=== PATIENT | female | born 1975 | race Caucasian/White ===

== ENCOUNTER → 2019-12-26 13:08 | Outpatient (BNVA) | payer MEDICAID, SELFPAY | PROVIDERS: Family Provider Nurse Practitioner Family; PCP Nurse Practitioner Family; Referring Provider Nurse Practitioner Family; Visit Provider Podiatrist Foot & Ankle Surgery | DX: M25.571 Pain in right ankle and joints of right foot (principal) | CPT/HCPCS: 73610 ==

== ENCOUNTER 2019-12-26 14:19 | Outpatient (CLI) | payer MEDICAID, SELFPAY | END 2019-12-26 14:20 | disposition home or self-care (01) | LOC: SPT 14:20 | PROVIDERS: Family Provider Nurse Practitioner Family; PCP Nurse Practitioner Family; Visit Provider Podiatrist Foot & Ankle Surgery | DX: M76.62 Achilles tendinitis, left leg (principal); M76.61 Achilles tendinitis, right leg | CPT/HCPCS: L4397 ==

== ENCOUNTER → 2020-01-19 09:50 | Outpatient (BNVA) | payer MEDICAID, SELFPAY | PROVIDERS: Family Provider Nurse Practitioner Family; PCP Family Medicine; Visit Provider Nurse Practitioner | DX: M54.9 Dorsalgia, unspecified (principal); M54.2 Cervicalgia; F17.210 Nicotine dependence, cigarettes, uncomplicated; Z79.891 Long term (current) use of opiate analgesic | CPT/HCPCS: 99213; 99214 ==

== ENCOUNTER → 2020-04-20 14:38 | Outpatient (BNVA) | payer MEDICAID, SELFPAY | PROVIDERS: Family Provider Nurse Practitioner Family; PCP Family Medicine; Visit Provider Family Medicine | DX: R30.0 Dysuria (principal); R35.0 Frequency of micturition | CPT/HCPCS: 81000 ==

== ENCOUNTER → 2020-06-04 09:15 | Outpatient (BNVA) | payer MEDICAID, SELFPAY | PROVIDERS: Family Provider Nurse Practitioner Family; PCP Family Medicine; Visit Provider Family Medicine | DX: N39.0 Urinary tract infection, site not specified (principal); K46.9 Unspecified abdominal hernia without obstruction or gangrene; R35.0 Frequency of micturition; R76.0 Raised antibody titer; Z79.899 Other long term (current) drug therapy | CPT/HCPCS: 80076; 81003; 82565; 85025; 85613; 85651; 85730; 86140 ==

== ENCOUNTER → 2020-06-12 14:10 | Outpatient (BNVA) | payer MEDICAID, SELFPAY | PROVIDERS: Family Provider Nurse Practitioner Family; PCP Family Medicine; Visit Provider Anesthesiology | DX: G89.29 Other chronic pain (principal); M54.5 Low back pain; M54.2 Cervicalgia; F17.210 Nicotine dependence, cigarettes, uncomplicated; Z79.891 Long term (current) use of opiate analgesic | CPT/HCPCS: 99213; 99214 ==

== ENCOUNTER → 2020-08-22 10:11 | Outpatient (BNVA) | payer MEDICAID, SELFPAY | PROVIDERS: Family Provider Nurse Practitioner Family; PCP Family Medicine; Visit Provider Anesthesiology | DX: G89.29 Other chronic pain (principal); M54.42 Lumbago with sciatica, left side; M54.41 Lumbago with sciatica, right side; M54.2 Cervicalgia; F17.210 Nicotine dependence, cigarettes, uncomplicated; Z79.891 Long term (current) use of opiate analgesic | CPT/HCPCS: 99213; 99214 ==

== ENCOUNTER → 2020-09-24 17:05 | Outpatient (BNVA) | payer MEDICAID, SELFPAY | PROVIDERS: Family Provider Nurse Practitioner Family; PCP Family Medicine; Visit Provider Nurse Practitioner Family | DX: E03.9 Hypothyroidism, unspecified (principal); Z23 Encounter for immunization; Z79.899 Other long term (current) drug therapy | CPT/HCPCS: 80076; 82565; 84439; 84443; 85025; 85651; 86140; 86376 ==

== ENCOUNTER → 2020-10-10 11:38 | Outpatient (BNVA) | payer MEDICAID, SELFPAY | PROVIDERS: Family Provider Nurse Practitioner Family; PCP Family Medicine; Visit Provider Internal Medicine Rheumatology | DX: M25.50 Pain in unspecified joint (principal); Z79.899 Other long term (current) drug therapy; R76.0 Raised antibody titer; E28.2 Polycystic ovarian syndrome; M79.7 Fibromyalgia; F17.210 Nicotine dependence, cigarettes, uncomplicated; R74.01 Elevation of levels of liver transaminase levels | CPT/HCPCS: 99214 ==

== ENCOUNTER 2020-10-17 09:33 | Outpatient (CLI) | payer MEDICAID, SELFPAY ==
[2020-10-17] MEDS: iohexol 300 mg/mL 50 mL Btl PO (10:29)
--- NOTE | 2020-10-17 11:00 | CT_ITS ---
WS: [id number] CT CHEST, ABDOMEN, AND PELVIS TECHNIQUE: Contrast-enhanced CT of the chest, abdomen, and pelvis with coronal and sagittal reformatt ed images. CLINICAL INFORMATION: Z95.828 - Presence of other vascular implants and grafts COMPARISON: CTA and CT abdomen pelvis DLP: All CT scans at [facility] use at least one of these dose optimization techniques: automat ed exposure control; mA and/or kV adjustment per patient size (includes targeted exams where dose is matched to clinical indication); or iterative reconstruction. CT CHEST: Normal caliber thoracic aorta. Normal caliber proximal main pulmonary arteries. No mediastinal or hil ar lymphadenopathy. No axillary lymphadenopathy. Aortic calcification. Both lungs are well aerated. N o acute pulmonary infiltrates. No mediastinal or hilar lymphadenopathy. No axillary lymphadenopathy. CT ABDOMEN AND PELVIS: Prior postoperative cholecystectomy. Diffuse fatty infiltration the liver. Hepatomegaly. Normal splee n. Fatty atrophy of the pancreas. Prior gastric sleeve procedure. No evidence of small or large bowel obstruction. Adrenal glands are normal. Normal renal parenchymal enhancement. Left renal cyst measur ing 1.5 cm. IVC filter. Aortic calcification. No abdominal or pelvic lymphadenopathy. No inguinal lymphadenopathy. Normal sigmoid colon. Prior ventral abdominal wall hernia repair with mesh. Additional upper abdomina l and lower abdominal ventral hernia repairs. Incidental tiny fat-containing umbilical hernia. Stable small fat-containing periumbilical hernia. Stable low-attenuation right ovarian lesion measuring 5.3 x 4.7 CM. Left ovarian cystic lesion measur ing 3.[address]/CT chest abd pel w con* IMPRESSION: 1. Lungs are well aerated. No acute pulmonary infiltrates. 2. No mediastinal or hilar lymphadenopathy. 3. Hepatomegaly with diffuse fatty infiltration. 4. Multiple prior ventral abdominal wall hernia repairs. 5. Fat-containing right periumbilical hernia measuring 2.5 cm is unchanged. No herniated bowel. 6. Incidental tiny fat-containing umbilical hernia. 7. Unchanged low-attenuation cystic-appearing lesion in the right lower quadra nt measuring 4.7 x 5.3 cm appears unchanged.. 8. Prior gastric sleeve procedure. 9. No inguinal hernia or lymphadenopathy.
[2020-10-17] MEDS: iohexol 300 mg/mL 100 mL Btl IV (11:57)
== END 2020-10-17 09:34 | disposition home or self-care (01) ==
LOC: RADWPI 09:39
PROVIDERS: PCP Family Medicine; Visit Provider Nurse Practitioner Family
DX: R10.31 Right lower quadrant pain (principal); Z95.828 Presence of other vascular implants and grafts; R16.0 Hepatomegaly, not elsewhere classified; K76.0 Fatty (change of) liver, not elsewhere classified; K42.9 Umbilical hernia without obstruction or gangrene
CPT/HCPCS: 71260; 74177; Q9967

== ENCOUNTER 2020-10-31 14:36 | Outpatient (CLI) | payer MEDICAID, SELFPAY ==
--- NOTE | 2020-10-31 10:15 | USCV_ITS ---
Prashanth Diamondher Age: 44 Gender: F : 1975 Exam Date: 10/31/2020 14:59 Ordering Phys: Gaby Asher MD Technologist: Fara Boyce Exam Location: [facility] – [place] Indication: PAIN IN RIGHT LEG HISTORY: Lower extremity pain. PROCEDURES: Venous duplex imaging was performed in only the right lower extremity. The following venous structures were evaluated: common femoral vein, profunda vein, proximal portion of the greater saphenous vein, superficial femoral vein, and the popliteal vein. In addition, the posterior tibial and peroneal trunk were evaluated. Serial compression, augmentation maneuvers, and spectral Doppler flow evaluation were performed. FINDINGS: Normal 2-D Doppler and augmentation and compressibility throughout the lower extremity venous structures. Additional imaging through the proximal calf veins also reveals no thrombus. Limited evaluation of the greater saphenous vein is patent with no thrombus.. CONCLUSIONS No evidence of right lower extremity DVT. Javier Thompson MD (Electronically Signed) Final Date: 01 November 2020 12:37 S
== END 2020-10-31 14:37 | disposition home or self-care (01) ==
LOC: RAD 14:40
PROVIDERS: PCP Family Medicine; Visit Provider Family Medicine
DX: M79.604 Pain in right leg (principal)
CPT/HCPCS: 93971

== ENCOUNTER → 2020-11-09 10:59 | Outpatient (BNVA) | payer MEDICAID, SELFPAY | PROVIDERS: Family Provider Nurse Practitioner Family; PCP Family Medicine; Visit Provider Nurse Practitioner | DX: G89.29 Other chronic pain (principal); M54.5 Low back pain; M25.551 Pain in right hip; M79.7 Fibromyalgia; M54.2 Cervicalgia; F17.210 Nicotine dependence, cigarettes, uncomplicated; Z79.891 Long term (current) use of opiate analgesic | CPT/HCPCS: 99214 ==

== ENCOUNTER → 2021-01-11 11:05 | Outpatient (BNVA) | payer MEDICAID, SELFPAY | PROVIDERS: Family Provider Nurse Practitioner Family; PCP Family Medicine; Visit Provider Nurse Practitioner | DX: G89.29 Other chronic pain (principal); M54.5 Low back pain; M79.7 Fibromyalgia; M54.2 Cervicalgia; F17.210 Nicotine dependence, cigarettes, uncomplicated; Z79.891 Long term (current) use of opiate analgesic; Z79.899 Other long term (current) drug therapy; Z71.6 Tobacco abuse counseling | CPT/HCPCS: 99213; 99214 ==

== ENCOUNTER → 2021-02-12 10:41 | Outpatient (BNVA) | payer MEDICAID, SELFPAY | PROVIDERS: Family Provider Nurse Practitioner Family; PCP Family Medicine; Visit Provider Internal Medicine Rheumatology | DX: Z79.899 Other long term (current) drug therapy (principal); R76.0 Raised antibody titer | CPT/HCPCS: 36415; 80076; 82565; 85025; 85651; 86140 ==